=== PATIENT | male | born 1980 | race Caucasian/White ===

== ENCOUNTER 2017-07-31 22:02 | Emergency (ER) | payer SELFPAY ==
[2017-07-31 22:39] LABS: APPEARANCE CLEAR (CLEAR); BILIRUBIN NEGATIVE (NEGATIVE); COLOR DK YELLOW (YELLOW); GLUCOSE NEGATIVE (NEGATIVE); KETONE MODERATE mg/dL (NEGATIVE); NITRITE NEGATIVE (NEGATIVE); PROTEIN NEGATIVE (NEGATIVE); SPECIFIC GRAVITY 1.015 (1.005-1.020); UROBILINOGEN NORMAL (NORMAL)
[2017-07-31 22:41] LABS: EPITHELIAL CELLS OCC /hpf (0-5); WHITE CELLS - URINE 0-5 /hpf (0-5)
[2017-08-01 00:09] LABS: BASOPHILS 0.4 % (0-2); EOSINOPHILS 0.4 % (0-7); HEMATOCRIT 44.2 % (42.0-54.0); HEMOGLOBIN 15.4 g/dL (13.5-17.5); IMMATURE GRANULOCYTES 0.3 % (0-5); LYMPHOCYTES 11.2 % (15-50); MCH 32.3 pg (26.0-34.0); MCHC 34.8 g/dL (31.0-37.0); MCV 92.7 fL (80.0-100.0); MEAN PLATELET VOLUME 9.9 fL (7.4-10.4); NEUTROPHILS 80.7 % (40-80); PLATELET COUNT 283 10x3/uL (130-400); RBC 4.77 10x6/uL (4.20-6.10); RDW 11.7 % (11.5-14.5); WBC 13.4 10x3/uL (4.8-10.8)
[2017-08-01 00:25] LABS: ALBUMIN 4.2 g/dL (3.4-5.0); ALKALINE PHOSPHATASE 79 U/L (46-116); ALT (SGPT) 36 U/L (10-68); BILIRUBIN - TOTAL 0.66 mg/dL (0.2-1.3); CALC OSMOLALITY 273 mosm/kg (275-300); CALCIUM 9.6 mg/dL (8.5-10.1); CARBON DIOXIDE 32.8 mmol/L (21.0-32.0); CHLORIDE - SERUM 100 mmol/L (98-107); GLUCOSE 103 mg/dL (74-106); POTASSIUM - SERUM 4.7 mmol/L (3.5-5.1); PROTEIN - SERUM 8.2 g/dL (6.4-8.2); SODIUM 136 mmol/L (136-145); UREA NITROGEN 17 mg/dL (7-18); eGFR NON AFRICAN AMERICAN 89 mL/min (90-120)
[2017-08-01 00:26] LABS: APTT 29.1 SECONDS (22.8-39.4); INR 0.98 (0.85-1.17); PROTIME 12.6 SECONDS (11.6-15.0)
[2017-08-01 00:28] LABS: D-DIMER-QUANTITATIVE < 0.27 ug/mLFEU (0.20-0.54)
[2017-08-01 00:39] LABS: AMYLASE - SERUM 48 U/L (25-115); CKMB 0.4 U/L (0.0-3.6); CREATINE KINASE 58 UL (21-232); LIPASE 67 U/L (73-393); TROPONIN-I < 0.017 ng/mL (0.000-0.060)
== END 2017-08-01 03:32 | disposition home or self-care (01) ==
LOC: D.ER 22:02
PROVIDERS: Family Medicine
DX: R11.10 Vomiting, unspecified (principal); F17.200 Nicotine dependence, unspecified, uncomplicated; I45.10 Unspecified right bundle-branch block

== ENCOUNTER 2019-02-23 02:08 | Emergency (ER) | payer MEDICAID ==
[~2019-02-23] VITALS: Ht 180.3 cm; Wt 110.3 kg
[2019-02-23 02:11] VITALS: Ht 180.3 cm; Wt 110.3 kg
[2019-02-23] MEDS ORDERED: BUPRENORPHIN-N1 EACH SL (02:14)
[2019-02-23] MEDS ORDERED: ADDERALL 20 MG20 M1 PO (02:14)
[2019-02-23 02:56] LABS: BASOPHILS 0.7 % (0-2); HEMATOCRIT 41.8 % (42.0-54.0); HEMOGLOBIN 14.5 g/dL (13.5-17.5); IMMATURE GRANULOCYTES 0.3 % (0-5); LYMPHOCYTES 20.5 % (15-50); MCH 31.4 pg (26.0-34.0); MCHC 34.7 g/dL (31.0-37.0); MCV 90.5 fL (80.0-100.0); MEAN PLATELET VOLUME 9.7 fL (7.4-10.4); MONOCYTES 9.4 % (2-11); NEUTROPHILS 66.1 % (40-80); RBC 4.62 10x6/uL (4.20-6.10); RDW 12.4 % (11.5-14.5); WBC 11.5 10x3/uL (4.8-10.8)
[2019-02-23 02:58] LABS: PLATELET COUNT 364 10x3/uL (130-400)
[2019-02-23 03:12] LABS: ALBUMIN 3.8 g/dL (3.4-5.0); ANION GAP 10.8 mmol/L (8-16); BILIRUBIN - TOTAL 0.23 mg/dL (0.2-1.3); CALCIUM 9.1 mg/dL (8.5-10.1); CARBON DIOXIDE 28.4 mmol/L (21.0-32.0); CREATININE - SERUM 1.2 mg/dL (0.6-1.3); POTASSIUM - SERUM 3.2 mmol/L (3.5-5.1); PROTEIN - SERUM 7.3 g/dL (6.4-8.2)
[2019-02-23] MEDS ORDERED: KEFLEX500 MG PO (04:32)
[2019-02-23] MEDS ORDERED: MEDROL DOSE PACK4 MG PO (04:32)
[2019-02-23 05:24] VITALS: BP 138/83
== END 2019-02-23 05:24 | disposition home or self-care (01) ==
LOC: D.ER 02:08
PROVIDERS: Family Medicine
DX: J03.90 Acute tonsillitis, unspecified (principal); J39.2 Other diseases of pharynx

== ENCOUNTER → 2019-05-24 13:58 | Outpatient (CLI) | payer MEDICAID ==
[2019-02-23 02:11] VITALS: BMI 33.9
[~2019-05-24 13:58] MED LIST: ADDERALL 20 MG20 M1 PO; BUPRENORPHIN-N1 EACH SL; KEFLEX500 MG PO; MEDROL DOSE PACK4 MG PO
== END | disposition home or self-care (01) ==
LOC: D.HCCARDIO 05-21 14:00
PROVIDERS: ATTEND Internal Medicine Cardiovascular Disease
DX: R07.9 Chest pain, unspecified (principal)